=== PATIENT | male | born 1965 | race Caucasian/White ===

== ENCOUNTER 2017-07-27 13:58 | Emergency (ER) | payer MEDICAID ==
[~2017-07-27] VITALS: Ht 647.4 cm; Wt 97.7 kg
[~2017-07-27 13:58] MED LIST: BUPR8TAB4 SL; CARV-50 PO; PANT-47 PO; SIMV10TA2 PO; SITA1TAB2 PO
[2017-07-27] MEDS ORDERED: dexamethasone sod phosphate 10mg/ml inj IM STA (15:44)
[2017-07-27] MEDS ORDERED: ketorolac tromethamine 15mg/ml inj. IM ONE (15:45)
[2017-07-27] MEDS ORDERED: diazepam 5mg tablet PO ONE (15:45)
[2017-07-27] MEDS ORDERED: METH-360 PO (15:50)
[2017-07-27] MEDS ORDERED: NAPR-56 PO (15:50)
[2017-07-27 16:13] VITALS: BP 149/88
== END 2017-07-27 16:14 | disposition home or self-care (01) ==
LOC: ER 13:59
DX: M54.5 Low back pain (principal); I10 Essential (primary) hypertension; E11.9 Type 2 diabetes mellitus without complications; G89.29 Other chronic pain; F12.90 Cannabis use, unspecified, uncomplicated; F15.90 Other stimulant use, unspecified, uncomplicated; F14.90 Cocaine use, unspecified, uncomplicated; Z98.890 Other specified postprocedural states; Z79.899 Other long term (current) drug therapy
CPT/HCPCS: 96372; 99284; J1100; J1885

== ENCOUNTER 2018-02-07 17:06 | Emergency (ER) | payer MEDICAID ==
[~2018-02-07] VITALS: Ht 182.9 cm; Wt 91.0 kg
[~2018-02-07 17:06] MED LIST changes: +METH-360 PO
[2018-02-07] MEDS ORDERED: ondansetron 4mg rapidly disintigrating tab PO ONE (18:10)
[2018-02-07] MEDS ORDERED: buprenorphine/naloxone 2-0.5mg sublingual tablet SL ONE ×2 (18:10→18:45)
[2018-02-07] MEDS ORDERED: buprenorphine/naloxone 8mg/2mg SL tablet SL ONE (18:20)
[2018-02-07] MEDS ORDERED: BUPR8TAB4 SL (18:45)
[2018-02-07 19:17] VITALS: BP 135/97
== END 2018-02-07 19:23 | disposition home or self-care (01) ==
LOC: ER 17:07
DX: F11.23 Opioid dependence with withdrawal (principal); G47.00 Insomnia, unspecified; G89.29 Other chronic pain; I10 Essential (primary) hypertension; E11.9 Type 2 diabetes mellitus without complications; F12.90 Cannabis use, unspecified, uncomplicated; F15.90 Other stimulant use, unspecified, uncomplicated; F14.90 Cocaine use, unspecified, uncomplicated; Z88.6 Allergy status to analgesic agent; Z79.899 Other long term (current) drug therapy; Z87.19 Personal history of other diseases of the digestive system; Z95.1 Presence of aortocoronary bypass graft
CPT/HCPCS: 99284

== ENCOUNTER 2018-02-10 15:42 | Emergency (ER) | payer MEDICAID ==
[~2018-02-10] VITALS: Ht 182.9 cm; Wt 96.0 kg
[2018-02-10 15:44] VITALS: BP 138/93
== END 2018-02-10 18:28 | disposition home or self-care (01) ==
LOC: ER 15:42
DX: F11.20 Opioid dependence, uncomplicated (principal); I10 Essential (primary) hypertension; E11.9 Type 2 diabetes mellitus without complications; G89.29 Other chronic pain; F12.90 Cannabis use, unspecified, uncomplicated; F15.90 Other stimulant use, unspecified, uncomplicated; Z98.890 Other specified postprocedural states; Z88.6 Allergy status to analgesic agent; Z79.899 Other long term (current) drug therapy
CPT/HCPCS: 99283

== ENCOUNTER 2018-02-12 10:25 | Emergency (ER) | payer MEDICAID ==
[~2018-02-12] VITALS: Ht 182.9 cm; Wt 90.0 kg
[2018-02-12 10:29] VITALS: BP 148/85
[2018-02-12] MEDS ORDERED: buprenorphine/naloxone 2-0.5mg sublingual tablet SL STA (12:18)
[2018-02-12] MEDS ORDERED: BUPR1FIL3 SL (12:32)
[2018-02-12] MEDS ORDERED: ondansetron 4mg rapidly disintigrating tab PO ONE (12:50)
== END 2018-02-12 13:45 | disposition home or self-care (01) ==
LOC: ER 10:26
DX: F11.23 Opioid dependence with withdrawal (principal); I10 Essential (primary) hypertension; E11.9 Type 2 diabetes mellitus without complications; G89.29 Other chronic pain; F12.90 Cannabis use, unspecified, uncomplicated; F15.90 Other stimulant use, unspecified, uncomplicated; F14.90 Cocaine use, unspecified, uncomplicated; F19.90 Other psychoactive substance use, unspecified, uncomplicated; Z98.890 Other specified postprocedural states; Z88.6 Allergy status to analgesic agent; Z79.899 Other long term (current) drug therapy
CPT/HCPCS: 99283

== ENCOUNTER 2018-04-09 09:37 | Emergency (ER) | payer MEDICAID ==
[~2018-04-09] VITALS: Ht 182.9 cm; Wt 95.0 kg
[2018-04-09] MEDS ORDERED: SULF1TAB49 PO (10:25)
[2018-04-09 10:43] VITALS: BP 135/83
== END 2018-04-09 10:46 | disposition home or self-care (01) ==
LOC: ER 09:38
DX: L08.9 Local infection of the skin and subcutaneous tissue, unspecified (principal); E11.9 Type 2 diabetes mellitus without complications; I10 Essential (primary) hypertension; G89.29 Other chronic pain; F12.90 Cannabis use, unspecified, uncomplicated; F15.90 Other stimulant use, unspecified, uncomplicated; F14.90 Cocaine use, unspecified, uncomplicated; Z98.890 Other specified postprocedural states; Z79.899 Other long term (current) drug therapy
CPT/HCPCS: 99283

== ENCOUNTER 2018-09-22 20:55 | Emergency (ER) | payer MEDICAID ==
[~2018-09-22] VITALS: Ht 182.9 cm; Wt 84.2 kg
[2018-09-22 21:04] VITALS: BP 141/70
== END 2018-09-23 02:07 | disposition left against medical advice (07) ==
LOC: ER 20:56
DX: M54.9 Dorsalgia, unspecified (principal); Z53.21 Procedure and treatment not carried out due to patient leaving prior to being seen by health care provider

== ENCOUNTER 2019-01-01 16:09 | Emergency (ER) | payer MEDICAID ==
[~2019-01-01] VITALS: Ht 182.9 cm; Wt 84.0 kg
[2019-01-01] MEDS ORDERED: buprenorphine/naloxone 8mg/2mg SL tablet SL STA ×2 (16:53→18:18)
[2019-01-01 17:16] LABS: BASOPHILS # (AUTO) 0.1 X10'3 (0-0.2); BASOPHILS % (AUTO) 0.7 % (0-1); EOSINOPHILS # (AUTO) 0.2 X10'3 (0-0.9); EOSINOPHILS % (AUTO) 1.5 % (0-6); HEMOGLOBIN 15.1 g/dl (14.0-17.9); LYMPHOCYTES # (AUTO) 2.4 X10'3 (1.1-4.8); MEAN CORPUSCULAR HEMOGLOBIN 28.3 PG (27.0-31.0); MEAN CORPUSCULAR HGB CONC 34.3 g/dL (33.0-36.5); MEAN CORPUSCULAR VOLUME 82.6 FL (78-98); MEAN PLATELET VOLUME 7.2 FL (7.4-10.4); MONOCYTES # (AUTO) 0.8 X10'3 (0-0.9); MONOCYTES % (AUTO) 6.4 % (2-12); NEUTROPHILS # (AUTO) 8.7 X10'3 (1.8-7.7); NEUTROPHILS % (AUTO) 71.4 % (42-75); PLATELET COUNT 351 X10'3 (140-440); RED BLOOD COUNT 5.32 X10'6 (4.70-6.10); RED CELL DISTRIBUTION WIDTH 13.5 % (11.5-14.5); WHITE BLOOD COUNT 12.2 X10'3 (4.5-11.0)
[2019-01-01 17:29] LABS: ALANINE AMINOTRANSFERASE 15 U/L (12-78); ALBUMIN 3.6 G/DL (3.4-5.0); ALBUMIN/GLOBULIN RATIO 0.8 (1.1-1.5); ALKALINE PHOSPHATASE 124 IU/L (46-116); ANION GAP 11 (8-16); ASPARTATE AMINO TRANSFERASE 6 U/L (10-37); BILIRUBIN,TOTAL 0.3 MG/DL (0.1-1.0); BLOOD UREA NITROGEN 8 MG/DL (7-18); BUN/CREATININE RATIO 10.1 (5.4-32.0); CALCIUM 9.3 MG/DL (8.5-10.1); CHLORIDE 103 MMOL/L (99-107); CREATININE 0.79 MG/DL (0.60-1.10); GLUCOSE 226 MG/DL (70-104); POTASSIUM 3.7 MMOL/L (3.5-5.1); SODIUM 141 MMOL/L (135-145); TOTAL PROTEIN 7.9 G/DL (6.4-8.2); eGFR > 90 ML/MIN
[2019-01-01 17:33] LABS: ETHANOL < 0.010 GM/DL (0.0-0.010)
[2019-01-01] MEDS ORDERED: cloNIDine 0.1 mg tablet PO ONE (18:20)
[2019-01-01] MEDS ORDERED: buprenorphine/naloxone 8MG-2MG SUBlingual film SL STA (19:05)
[2019-01-01] MEDS ORDERED: BUPR1FIL3 SL (19:08)
[2019-01-01 19:20] VITALS: BP 129/92
== END 2019-01-01 19:22 | disposition home or self-care (01) ==
LOC: ER 16:09
DX: F11.23 Opioid dependence with withdrawal (principal); R10.84 Generalized abdominal pain; R11.0 Nausea; R45.1 Restlessness and agitation; R00.0 Tachycardia, unspecified; R52 Pain, unspecified; I10 Essential (primary) hypertension; E11.9 Type 2 diabetes mellitus without complications; G89.29 Other chronic pain; F12.90 Cannabis use, unspecified, uncomplicated; F15.90 Other stimulant use, unspecified, uncomplicated; F14.90 Cocaine use, unspecified, uncomplicated; Z79.899 Other long term (current) drug therapy; Z98.890 Other specified postprocedural states; Z95.1 Presence of aortocoronary bypass graft; Z90.49 Acquired absence of other specified parts of digestive tract; Z87.19 Personal history of other diseases of the digestive system
CPT/HCPCS: 36415; 80053; 80320; 85025; 93005; 99284